=== PATIENT | female | born 1940 | race Caucasian/White ===

== ENCOUNTER → 2016-12-22 | Outpatient (CLI) | payer MEDICARE, OTHER ==
[2015-01-04 18:20] VITALS: BP 112/51
[~2016-12-22] MED LIST: ACET500T68 PO; ANTI10DR7 AU; ASCO-78 PO; ASPI81TA2 PO; BIOF1TAB7 PO; BIOT25005 PO; CALC-98 PO; CHOL10003 PO; CLIN30GE3 TP; CLOT15CR4 TP; DIPH25CA58 PO; DIVA125C PO; ECON15CR TP; FLUO10CA13 PO; FLUT16SP NS; FLUV50TA2 PO; FURO-68 PO; GLUC1CAP48 PO; HALO5AMP2 TOP; LORA0.5T TOP; LORA10TA68 PO; MAG355OR17 PO; MAGN2400 PO; MAGN454C TOP; MECL25TA3 PO; MENT5.8L4 PO; NEOM28OI TP; OLAN2.5T3 PO; ONDA4TAB7 PO; OXYM30SP67 NS; POTA20TA12 PO; PROM25VI5 IM; PROP15DR OU; RISP1SOL6 PO; RISP25DI IM; SODI30SP NS; TRIA15CR TP; TRIA15CR2 TP; VALE450C PO; [UNRECOGNIZED DRUG - OTHER] PO
[2016-12-22 08:33] LABS: CREATININE 0.8 mg/dL (0.6-1.0); GFR 69.9; POTASSIUM 4.1 mmol/L (3.5-5.1)
== END | disposition home or self-care (01) ==
LOC: SPEC 07:59
PROVIDERS: ATTEND Internal Medicine
DX: E63.9 Nutritional deficiency, unspecified (principal)
CPT/HCPCS: 36415; 80048

== ENCOUNTER → 2017-01-21 | Outpatient (CLI) | payer MEDICARE, OTHER ==
[2015-01-04 18:20] VITALS: BP 112/51
[~2017-01-21] MED LIST changes: +ASPI-630 PO; -ASPI81TA2 PO; -BIOT25005 PO; +BIOT25006 PO; -FLUT16SP NS; +FLUT16SP21 NS; -PROP15DR OU; +PROP15DR40 OU; -TRIA15CR TP; +TRIA15CR50 TP
[2017-01-21 14:17] LABS: BILIRUBIN,URINE NEG (NEG); CLARITY,URINE CLEAR; COLOR,URINE YELLOW; GLUCOSE,URINE NEG (NEG); NITRITE,URINE NEG (NEG); UROBILINOGEN,URINE 0.2 mg/dL (0.2 mg/dL)
[2017-01-21 14:18] LABS: BACTERIA,URINE FEW /HPF (0-FEW); WBC,URINE 0 /HPF (0-4)
== END | disposition home or self-care (01) ==
LOC: SPEC 13:35
PROVIDERS: ATTEND Internal Medicine
DX: N39.0 Urinary tract infection, site not specified (principal)
CPT/HCPCS: 81001

== ENCOUNTER → 2017-01-28 | Outpatient (CLI) | payer MEDICARE, OTHER ==
[2015-01-04 18:20] VITALS: BP 112/51
--- NOTE | 2017-01-28 10:37 | RAD ---
Examination: Ultrasound kidneys History: History of hematuria. Comparison: None available Findings: The right kidney measures 9.3 x 5.4 x 4.8. The left kidney measures 10.1 x 5.4 x 4.7 cm. There is a 1.3 cm cyst identified in the left kidney laterally. There is a 7 mm echogenicity identified in the left kidney likely an intrarenal collecting system calculus. The visualized aorta, IVC are patent. The urinary bladder is empty. Impression: 1. 7 mm intrarenal collecting system calculus identified in the left kidney. 2. 1.3 cm cyst identified in the left kidney.
== END | disposition home or self-care (01) ==
LOC: US 09:38
PROVIDERS: ATTEND Internal Medicine
DX: N20.0 Calculus of kidney (principal); N28.1 Cyst of kidney, acquired
CPT/HCPCS: 76770

== ENCOUNTER → 2017-03-14 | Outpatient (CLI) | payer MEDICARE, OTHER ==
[2015-01-04 18:20] VITALS: BP 112/51
== END | disposition home or self-care (01) ==
LOC: SPEC 10:23
PROVIDERS: ATTEND Urology
DX: N39.0 Urinary tract infection, site not specified (principal)
CPT/HCPCS: 87086

== ENCOUNTER → 2017-03-16 | Outpatient (CLI) | payer MEDICARE, OTHER ==
[2015-01-04 18:20] VITALS: BP 112/51
[~2017-03-16] MED LIST changes: +IOHEXOL 300 MG/ML 75 ML VIAL. IV ONE
[2017-03-16 08:37] LABS: CREATININE 0.9 mg/dL (0.6-1.0)
--- NOTE | 2017-03-16 16:21 | RAD ---
CT of the abdomen and pelvis with and without contrast, CT urogram, 03/16/2017: History: Left flank pain Multidetector imaging of the abdomen and pelvis was performed prior to and following an IV bolus injection of iodinated contrast material. The postcontrast scans were obtained through the kidneys in a nephrographic phase and through the entire urinary tract in an excretory phase. 3-D MIP reconstructions of the urinary tract were produced from the excretory phase data. The study is severely compromised by patient motion artifact. No urinary tract calculi are identified. There is a small cortical low-density lesion in the lower pole of the left kidney compatible with a cyst. There is renal sinus lipomatosis bilaterally. The renal collecting systems and ureters are not dilated. The urinary bladder shows no abnormality. A small low-density lesion in the central aspect of the liver is probably a cyst. The gallbladder is unremarkable. No pancreatic abnormality is seen. The spleen is of normal size. Aortoiliac calcific plaquing is present without evidence of aneurysm. The uterus is deviated to the right of midline. Multiple colonic diverticula are present, most numerous in the descending colon and sigmoid colon. No paracolonic inflammatory process is seen. No bowel dilatation is evident. There is a small hiatal hernia. There is no evidence of free fluid or free air in the abdomen or pelvis. There is diastases and thinning of the rectus abdominis musculature with a small umbilical hernia. The hernia contains only fat. Moderate multilevel degenerative changes are present in the spine. A small focal area of sclerosis in the L2 vertebral body is probably a bone island. IMPRESSION: 1. Severely compromised exam due to patient motion artifact. 2. Small left renal cyst. 3. No evidence of urinary tract calculi or obstruction. 4. Colonic diverticulosis. 5. Small umbilical hernia. PQRS Compliance Statement: One or more of the following individualized dose reduction techniques were utilized for this examination: 1. Automated exposure control 2. Adjustment of the mA and/or kV according to patient size 3. Use of iterative reconstruction technique
== END | disposition home or self-care (01) ==
LOC: CT 07:29
PROVIDERS: ATTEND Urology
DX: G30.9 Alzheimer's disease, unspecified (principal); K57.30 Diverticulosis of large intestine without perforation or abscess without bleeding; N28.1 Cyst of kidney, acquired; E88.2 Lipomatosis, not elsewhere classified; F02.80 Dementia in other diseases classified elsewhere, unspecified severity, without behavioral disturbance, psychotic disturbance, mood disturbance, and anxiety
CPT/HCPCS: 36415; 74178; 82565; Q9967

== ENCOUNTER → 2017-04-20 | Outpatient (CLI) | payer MEDICARE, OTHER ==
[2015-01-04 18:20] VITALS: BP 112/51
[~2017-04-20] MED LIST changes: -IOHEXOL 300 MG/ML 75 ML VIAL. IV ONE
[2017-04-20 12:49] LABS: CALCIUM 8.6 mg/dL (8.5-10.1); CREATININE 0.7 mg/dL (0.6-1.0); GFR 81.6; POTASSIUM 4.2 mmol/L (3.5-5.1)
== END | disposition home or self-care (01) ==
LOC: SPEC 11:39
PROVIDERS: ATTEND Internal Medicine
DX: I47.1 Supraventricular tachycardia (principal); E63.9 Nutritional deficiency, unspecified
CPT/HCPCS: 36415; 80048

== ENCOUNTER → 2017-06-30 | Outpatient (CLI) | payer MEDICARE, OTHER ==
[2015-01-04 18:20] VITALS: BP 112/51
== END | disposition home or self-care (01) ==
LOC: SPEC 11:46
PROVIDERS: ATTEND Internal Medicine
DX: E55.9 Vitamin D deficiency, unspecified (principal)
CPT/HCPCS: 36415; 82306

== ENCOUNTER → 2017-08-20 | Outpatient (CLI) | payer MEDICARE, OTHER ==
[2015-01-04 18:20] VITALS: BP 112/51
[2017-08-20 12:11] LABS: CALCIUM 9.2 mg/dL (8.5-10.1); CREATININE 0.9 mg/dL (0.6-1.0); GFR 60.9; POTASSIUM 4.1 mmol/L (3.5-5.1)
== END | disposition home or self-care (01) ==
LOC: SPEC 11:30
PROVIDERS: ATTEND Internal Medicine
DX: I47.1 Supraventricular tachycardia (principal); E63.9 Nutritional deficiency, unspecified; G30.9 Alzheimer's disease, unspecified; F02.80 Dementia in other diseases classified elsewhere, unspecified severity, without behavioral disturbance, psychotic disturbance, mood disturbance, and anxiety
CPT/HCPCS: 36415; 80048

== ENCOUNTER → 2017-10-27 | Outpatient (CLI) | payer MEDICARE, OTHER ==
[2015-01-04 18:20] VITALS: BP 112/51
== END | disposition home or self-care (01) ==
LOC: SPEC 14:35
PROVIDERS: ATTEND Internal Medicine
DX: E55.9 Vitamin D deficiency, unspecified (principal)
CPT/HCPCS: 36415; 82306

== ENCOUNTER 2018-02-07 13:17 | Inpatient (IN) | payer MEDICARE, OTHER ==
[~2018-02-07] VITALS: Ht 157.5 cm; Wt 69.7 kg
[~2018-02-07 13:17] MED LIST changes: +LORA0.5T PO; -LORA0.5T TOP
[2018-02-07] MEDS ORDERED: IV NORMAL SALINE 1,000ML 1,000 ML IV SCH (13:34)
--- NOTE | 2018-02-07 13:46 | PHYS DOC ---
Past History Past Medical History: Anxiety, Constipation, UTI, Other Past Surgical History: Other Alcohol Use: None Drug Use: None Adult General Chief Complaint Chief Complaint: MECHANICAL FALL HPI HPI 77-year-old female presents after fall in the longterm. The patient is not supposed to get out of a chair or bed without assistance and she decided to do so today she fell and landed on her face. She has abrasions to the bridge of her nose and around the left eye. She also has left wrist pain. The patient has dementia and is not oriented at baseline. According to the caregiver who accompanies her, she has been acting at baseline since the fall. She did not lose consciousness. When I ask her about pain, she doesn't really complain but does wince a bit when I palpate her face on the left. There is no obvious deformity. She had a bloody nose, that is controlled at this time. Review of Systems Review of Systems Constitutional: Denies fever or chills [] Eyes: Denies change in visual acuity, redness, or eye pain [] HENT: Denies nasal congestion or sore throat [] Respiratory: Denies cough or shortness of breath [] Cardiovascular: No additional information not addressed in HPI [] GI: Denies abdominal pain, nausea, vomiting, bloody stools or diarrhea [] : Denies dysuria or hematuria [] Musculoskeletal: Left wrist pain[] Integument: Denies rash or skin lesions [] Neurologic: Dementia at baseline [] Endocrine: Denies polyuria or polydipsia [] All other systems were reviewed and found to be within normal limits, except as documented in this note. Current Medications Current Medications Current Medications Medications (Trade) Dose Ordered Sig/Karen Start Time Stop Time Status Last Admin Dose Admin Sodium Chloride 1,000 ml @ 1,000 mls/hr Q1H 02/07/18 13:34 02/07/18 14:33 UNV Allergies Allergies Allergies Coded Allergies Type Severity Reaction Last Updated Verified Sulfa (Sulfonamide Antibiotics) Allergy Intermediate 10/12/14 Yes venom-honey bee Allergy Intermediate 10/12/14 Yes Physical Exam Physical Exam Constitutional: Well developed, well nourished, no acute distress, non-toxic appearance. [] HENT: Abrasions to the bridge of the nose and the left periorbital area dry blood within the naris. [] Eyes: PERRLA, EOMI, conjunctiva normal, no discharge. [] Neck: Normal range of motion, no tenderness, supple, no stridor. [] Cardiovascular:Heart rate regular rhythm, no murmur [] Lungs & Thorax: Bilateral breath sounds clear to auscultation [] Abdomen: Bowel sounds normal, soft, no tenderness, no masses, no pulsatile masses. [] Skin: Abrasions as noted above[] Back: No tenderness, no CVA tenderness. [] Extremities: Left wrist in splint and Varinder wrap. Not tender to palpation.. [] Neurologic: Alert, normal motor function, normal sensory function, no focal deficits noted. [] Psychologic: Affect normal, judgement normal, mood normal. [] Current Patient Data Vital Signs Vital Signs Date Time Temp Pulse Resp B/P (MAP) Pulse Ox O2 Delivery O2 Flow Rate FiO2 02/07/18 13:29 98.3 63 16 97 Room Air EKG EKG Normal sinus rhythm, rate 63, normal axis, no ST elevation or depression.[] Radiology/Procedures Radiology/Procedures CT HEAD WO CONTRAST History: Fell today, hit head Comparison: January 08, 2013. Technique: Noncontrast CT imaging was performed of the head. Exposure: One or more of the following individualized dose reduction techniques were utilized for this examination: 1. Automated exposure control 2. Adjustment of the mA and/or kV according to patient size 3. Use of iterative reconstruction technique. Findings: There is motion degradation. No acute extra-axial or parenchymal hemorrhage is identified. There is no significant intra-axial mass effect, midline shift, or extra-axial fluid collection. The pompa-white differentiation of the major vascular territories is preserved. There is bwve-bk-ihuaepno generalized supratentorial atrophy which has progressed since 2012 exam, ventricular size proportionate to sulcal spaces. There is some scattered relatively mild ill-defined low-density of the supratentorial parenchyma bilaterally. The mastoid air cells and the visualized paranasal sinuses are aerated. There is left frontal region scalp soft tissue hematoma, no underlying fracture. Impression: 1. No acute intracranial hemorrhage is identified. Exam is degraded by motion. There is generalized supratentorial atrophy which has progressed since 2013 exam. Ill-defined low-density of the supratentorial parenchyma is most commonly due to chronic microvascular ischemic disease in a patient this age. If there is suspicion for evolving or acute ischemia, follow-up CT or MRI could be beneficial. Electronically signed by: Chino Brown MD (02/07/2018 2:27 PM) [facility] DICTATED AND SIGNED BY: CHINO BROWN MD DATE: 02/07/18 1420 CC: VIN SALMERON DO; BRIANNE REAL MD ~ WRIST 2V LEFT History: left wrist pain, fell today Comparison: None. Findings: 3 views left wrist are submitted. Patient's watch is still present. There is degenerative change first carpometacarpal articulation. There is likely nondisplaced fracture of the ulnar styloid process. No definitive radius fracture is identified, segmentally obscured on various views. Impression: 1. There is suspected nondisplaced ulnar styloid process fracture. Electronically signed by: Chino Brown MD (02/07/2018 2:15 PM) [facility] DICTATED AND SIGNED BY: CHINO BROWN MD DATE: 02/07/18 7300 CC: VIN SALMERON DO; BRIANNE REAL MD ~ [] Course & Med Decision Making Course & Med Decision Making Pertinent Labs and Imaging studies reviewed. (See chart for details) The patient's has a nondisplaced distal ulnar styloid fracture. This is a closed fracture. She has an elevated troponin of 0.3. Head CT has no acute findings. I will admit the patient for trending of her troponins as well as observation due to her head trauma. Orthopedic consult is advised during admission. I discussed the case with the hospitalist, Dr. Olmos and he has agreed to admission for further management. Return to the patient's transport, her repeat labs came back and she was found to be profoundly hypokalemic and hypocalcemic. I ordered both of these replacements by IV. Greater than 35 minutes of critical care time was spent on this patient including not limited to lab interpretation, multiple IV medication worse, EKG interpretation, x-ray interpretation, coordination of care. [] Dragon Disclaimer Dragon Disclaimer This electronic medical record was generated, in whole or in part, using a voice recognition dictation system. Departure Departure: Referrals: BRIANNE REAL MD (PCP) VIN SALMERON DO February 07, 2018 13:46
--- NOTE | 2018-02-07 14:18 | RAD ---
WRIST 2V LEFT History: left wrist pain, fell today Comparison: None. Findings: 3 views left wrist are submitted. Patient's watch is still present. There is degenerative change first carpometacarpal articulation. There is likely nondisplaced fracture of the ulnar styloid process. No definitive radius fracture is identified, segmentally obscured on various views. Impression: 1. There is suspected nondisplaced ulnar styloid process fracture. Electronically signed by: Parth Armenta MD (02/07/2018 2:15 PM) [facility]
--- NOTE | 2018-02-07 14:31 | RAD ---
CT HEAD WO CONTRAST History: Fell today, hit head Comparison: January 08, 2013. Technique: Noncontrast CT imaging was performed of the head. Exposure: One or more of the following individualized dose reduction techniques were utilized for this examination: 1. Automated exposure control 2. Adjustment of the mA and/or kV according to patient size 3. Use of iterative reconstruction technique. Findings: There is motion degradation. No acute extra-axial or parenchymal hemorrhage is identified. There is no significant intra-axial mass effect, midline shift, or extra-axial fluid collection. The pompa-white differentiation of the major vascular territories is preserved. There is llnf-bz-aokfmawu generalized supratentorial atrophy which has progressed since 2013 exam, ventricular size proportionate to sulcal spaces. There is some scattered relatively mild ill-defined low-density of the supratentorial parenchyma bilaterally. The mastoid air cells and the visualized paranasal sinuses are aerated. There is left frontal region scalp soft tissue hematoma, no underlying fracture. Impression: 1. No acute intracranial hemorrhage is identified. Exam is degraded by motion. There is generalized supratentorial atrophy which has progressed since 2013 exam. Ill-defined low-density of the supratentorial parenchyma is most commonly due to chronic microvascular ischemic disease in a patient this age. If there is suspicion for evolving or acute ischemia, follow-up CT or MRI could be beneficial. Electronically signed by: Parth Armenta MD (02/07/2018 2:27 PM) [facility]
[2018-02-07] MEDS ORDERED: POTASSIUM CL 40MEQ IN 0.9%NACL 1,000 ML IV ONE (15:30)
[2018-02-07] MEDS ORDERED: CALCIUM GLUCONATE 1,000 MG/10 ML VIAL IV ONE (15:45)
--- NOTE | 2018-02-07 15:55 | EKG ---
[address] [address] Test Date: 2018-02-07 Test Time: 13:47:13 Pat Name: LEA CAROLINA Department: Room: Gender: F Manager Council: STEPHY : 1940 Requested By: VIN SALMERON Order Number: [id number] Reading MD: Measurements Intervals Victor Rate: 63 P: 46 NH: 188 QRS: -8 QRSD: 76 T: 45 QT: 416 QTc: 429 Interpretive Statements SINUS RHYTHM LEFTWARD AXIS QRS(T) CONTOUR ABNORMALITY CONSIDER ANTEROSEPTAL MYOCARDIAL DAMAGE POSSIBLY ABNORMAL ECG RI6.01 No previous ECG available for comparison
[2018-02-07 17:06] VITALS: BP 132/80
[2018-02-07] MEDS: POTASSIUM CL 40MEQ IN D5W 1,000 ML IV SCH (17:15)
[2018-02-07] MEDS ORDERED: CHOLECALCIFEROL (VITAMIN D3) 50,000 UNIT CAPSULE PO SCH (17:15)
[2018-02-07] MEDS ORDERED: CALCIUM CHLORIDE 1,000 MG/10 ML DISP.SYRIN IV ONE (17:30)
[2018-02-07] MEDS ORDERED: POTASSIUM CHLORIDE 20 MEQ TABLET.ER. PO ONE (17:30)
[2018-02-07] MEDS: CALCIUM CARBONATE 500 MG TABLET PO SCH (17:57)
[2018-02-07 19:20] VITALS: BP 119/82
[2018-02-07] MEDS: POTASSIUM CHLORIDE 20 MEQ TABLET.ER. PO SCH (20:32)
--- NOTE | 2018-02-07 21:17 | HP ---
ADMIT DATE: 02/07/2018 HISTORY OF PRESENT ILLNESS: The patient is a 77-year-old female patient, sister of [facility], who was sent from [facility] on account of after she fell. The patient is not supposed to get out of her chair or bed without assistance and she decided to do so today and she fell and landed on her face. She has abrasions in the bridge of her nose and around her left eye. She also has left wrist pain. The patient has dementia and is not oriented at baseline. According to the caregiver, who accompanies her, she has been acting at baseline since the fall. She did not lose any consciousness and when I asked her about pain she does not really complain, but does wince a bit when I palpated her face and on the left side there is no obvious deformity. There is a bloody nose that is controlled at the time she arrived. She was evaluated and was found to have possible nondisplaced fracture of the left styloid process for which a splint was applied. She was also found to have severe hypokalemia and hypocalcemia and was admitted to replenish her potassium and calcium as well as her hypernatremia and to start the process of physical and occupational therapy. The patient, herself is extremely demented and does not give any useful information. PAST MEDICAL HISTORY: Significant for dementia and anxiety. She also has Meniere's disease. PAST SURGICAL HISTORY: Unremarkable. ALLERGIES: She is allergic to SULFA . 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 She got her under graduate from [employer], some other place. She does not drink alcohol or use any recreational drugs. REVIEW OF SYSTEMS: Unobtainable. MEDICATIONS: She is currently on following medications: She is on Celebrex 200 mg twice a day, fluvoxamine maleate 75 mg once a day. She is on Senna Lax two tablets daily, Seroquel 12.5 mg twice a day, vitamin D 50,000 international units once a week. She is on Ativan 0.25 mg at bedtime, polyethylene glycol 17 grams daily p.r.n. for constipation and Ativan 0.5 mg 3 times a day. PHYSICAL EXAMINATION: GENERAL: On examining her today, she looked well and was clearly in no apparent respiratory distress, pale, but no jaundice, cyanosis, or thyromegaly. No jugular venous distension. No limb edema. VITAL SIGNS: Her heart rate on arrival was 63, blood pressure was 130/80, temperature was 98.3, respiratory rate was 16, and oxygen saturation was 97% on room air. HEAD, EYES, EARS, NOSE AND THROAT: Showed she is normocephalic, atraumatic. She does have bruises around the bridge of her nose and around her left eye. Otherwise, no other abnormality. NECK: Supple. HEART: Showed normal first and second heart sounds with no gallop, rub or murmur. CHEST: Clear to auscultation. No crepitation or rhonchi. ABDOMEN: Distended, soft, nontender. NEUROLOGIC: She is extremely demented, but does not have any lateralizing sign. All her cranial nerves intact. EXTREMITIES: She moves extremities without difficulty, although she is mostly bedbound, chair bound. LABORATORY DATA: On arrival showed serum sodium of 149, potassium 2.2, chloride 119, bicarbonate 18, anion gap of 12, BUN 11, creatinine 0.4, estimated GFR was 155 mL per minute. Her calcium was 5. Her white cell count was 5300, hemoglobin 10.5, hematocrit 31, MCV 93, and platelet count of 198,000. X-ray of her left wrist showed that there is a suspected nondisplaced ulnar styloid process fracture. The CT scan of the head showed that there is no intracranial hemorrhage identified, exam is degraded by motion. There is generalized supratentorial atrophy, which has progressed since 2013 exam, ill-defined low density of the supratentorial, is most commonly due to chronic microvascular ischemic disease in a patient of this age. If there is suspicion of evolving or acute ischemia followup CT scan or MRI could be identified, could be beneficial. IMPRESSION: In summary, this is a 77-year-old sister of manuel, who lives at [facility] and who fell landing on her face, sustaining some abrasion to bridge of her nose and around her left eye, who was found basically to have multiple electrolyte abnormality including hypernatremia, severe hypokalemia, potassium 2.2. She has also hypocalcemia. PLAN: My plan is to start her on IV fluid to replenish her potassium and also correct her high sodium. I will start her also on calcium carbonate and decide on further management accordingly. ELIAD MATA MD DR: Carlos JOB#: [id number] / [id number]
[2018-02-07 22:45] VITALS: BP 116/60
[2018-02-07] MEDS ORDERED: BENZ0.5T32 PO (23:35)
[2018-02-07] MEDS ORDERED: ACET325T21 PO (23:35)
[2018-02-07] MEDS ORDERED: SALI10002 MM (23:35)
[2018-02-07] MEDS ORDERED: MENT222L TP (23:36)
[2018-02-07] MEDS ORDERED: NYST15PO9 TP (23:36)
[2018-02-07] MEDS ORDERED: LORA0.5T96 PO (23:36)
[2018-02-07] MEDS ORDERED: QUET25TA5 PO (23:36)
[2018-02-07] MEDS ORDERED: POLY255P PO (23:36)
[2018-02-07] MEDS ORDERED: CHOL500050 PO (23:36)
[2018-02-07] MEDS ORDERED: SENN-87 PO (23:36)
[2018-02-07] MEDS ORDERED: CELE200C PO (23:36)
[2018-02-08] MEDS: POTASSIUM CL 40MEQ IN D5W 1,000 ML IV SCH ×2 (05:21→21:21)
[2018-02-08 05:50] VITALS: BP 110/76
[2018-02-08 07:09] LABS: BASO % 1 % (0-3); EOS # 0.3 x10^3/uL (0.0-0.7); EOS % 4 % (0-3); HEMATOCRIT 39.5 % (36.0-47.0); HEMOGLOBIN 13.3 g/dL (12.0-15.5); LYMPH # 1.5 x10^3/uL (1.0-4.8); LYMPH % 21 % (24-48); MEAN CORPUSCULAR HEMOGLOBIN 31 pg (25-35); MEAN CORPUSCULAR HGB CONC 34 g/dL (31-37); MEAN CORPUSCULAR VOLUME 92 fL (79-100); MONO # 0.6 x10^3/uL (0.0-1.1); MONO % 9 % (0-9); NEUT # 4.6 x10^3uL (1.8-7.7); NEUT % 66 % (31-73); PLATELET COUNT 245 x10^3/uL (140-400); RED CELL DISTRIBUTION WIDTH 13.8 % (11.5-14.5)
[2018-02-08 07:34] LABS: CALCIUM 8.7 mg/dL (8.5-10.1); CREATININE 0.7 mg/dL (0.6-1.0); GFR 81.4; POTASSIUM 4.4 mmol/L (3.5-5.1)
[2018-02-08] MEDS: CALCIUM CARBONATE 500 MG TABLET PO SCH ×3 (09:56→18:00)
[2018-02-08] MEDS: POTASSIUM CHLORIDE 20 MEQ TABLET.ER. PO SCH (09:56)
[2018-02-08 11:00] VITALS: BP 134/75
[2018-02-08 15:25] VITALS: BP 136/80
[2018-02-08 19:25] VITALS: BP 112/75
[2018-02-08 23:10] VITALS: BP 124/72
[2018-02-09 06:10] VITALS: BP 128/70
[2018-02-09 06:52] LABS: CALCIUM 10.1 mg/dL (8.5-10.1); CREATININE 0.8 mg/dL (0.6-1.0); GFR 69.7; POTASSIUM 4.2 mmol/L (3.5-5.1)
[2018-02-09] MEDS: CALCIUM CARBONATE 500 MG TABLET PO SCH (08:25)
[2018-02-09 11:00] VITALS: BP 118/69
--- NOTE | 2018-02-09 14:11 | PN ---
DATE: 02/08/2018 SUBJECTIVE: The patient is sitting propped up in bed, in no apparent respiratory distress. She was extremely confused, does not give any useful information. She continued to have pursed lip breathing. The nurse said that she had an episode of emesis this morning, but otherwise she has remained stable. PHYSICAL EXAMINATION: GENERAL: When I examined her, she looked well and was clearly in no apparent respiratory distress. VITAL SIGNS: Her heart rate was 81, blood pressure was 134/75, temperature was 99.3, respiratory rate was 18 and oxygen saturation was 97% on room air. HEAD, EYES, EARS, NOSE AND THROAT: Showed she is normocephalic, status post fall with bruises over the nasal bridge and around her left eye. NECK: Supple. HEART: Showed normal first and second heart sounds. No gallop, rub or murmur. CHEST: Clear to auscultation. No crepitation or rhonchi. ABDOMEN: Distended, soft, nontender. NEUROLOGIC: She is demented, but without any obvious lateralizing sign. All her cranial nerves intact. She moves upper extremities to much good extent than lower extremities. She is mostly bedbound, chair bound. Her intake over the last 24 hours was 1385, no output was recorded. LABORATORY DATA: This morning showed her serum sodium was 140, potassium 4.4, chloride 107, bicarbonate 22, anion gap of 11, BUN 11, creatinine was 0.7, estimated GFR was 81 mL per minute. Her glucose was 106. Her BUN is 11, creatinine 0.7, estimated GFR was 81 mL per minute. Her glucose was 106 and calcium was 8.7. Her white cell count was 7000, hemoglobin was 13.3, hematocrit 39, MCV 92, and platelet count 245,000. ASSESSMENT: Fall with resultant bruises and some abrasion on the bridge of the nose on the left periorbital area and dry blood within the naris, multiple metabolic abnormalities including hypernatremia that has resolved; hypokalemia, resolved; hypocalcemia, resolved. PLAN: My plan is to discontinue the oral potassium. Continue with IV fluid with potassium supplement and repeat her labs tomorrow and if they remain stable, you can discharge her back to [facility]. ELIDA MATA MD DR: VIOLA/dandre JOB#: [id number] / [id number]
--- NOTE | 2018-02-09 23:31 | DS ---
DATE OF DISCHARGE: 02/09/2018 HOSPITAL COURSE: The patient is a 77-year-old female patient, sister of a [employer] manuel who was brought from the [facility] assisted living on account of a falling. Apparently the patient to got out of her chair without assistance and she decided to do so on her own without asking for help, then she fell and landed on her face. She had abrasion to the bridge of her nose and around her left eye. She also had left wrist pain. She is demented and is not oriented even at baseline. She did not lose any consciousness and when I asked her about pain, she does not really, but does wince a bit when her face was palpated. Anyhow, she was extensively investigated in the Emergency Room, was found to be hypokalemic, hypernatremic and hypocalcemic. Her CT scan of the head was unremarkable. X-ray of her left breast showed a questionable nondisplaced ulnar styloid process fracture, for which she was put in a splint. She was admitted and was started on IV fluid in the form of D5 with 40 mEq of potassium chloride. She was started also on vitamin D and calcium carbonate and she did actually very well. She remained stable. Has had no falls. Her lab work showed dramatic improvement and that her sodium came down from 149 down to 141, potassium improved from 2.7-4.2 and her calcium has improved from 5-10.1 and a decision was made to transfer her back to [facility] with orders to increase the potassium supplement as well as calcium. She is already on vitamin D. PHYSICAL EXAMINATION: GENERAL: When I examined her today, she looked pale, but no jaundice or cyanosis. No lymphadenopathy, no thyromegaly. No jugular venous distention. No limb edema. VITAL SIGNS: Her heart rate was 79, blood pressure 118/69, temperature was 98.8, respiratory rate was 20, and oxygen saturation was 96% on room air. HEAD, EYES, EARS, NOSE AND THROAT: Showed she has some abrasion on the bridge of the nose and the left side of her face and around her left eye. NECK: Supple. HEART: Showed normal first and second heart sounds with no gallop, rub or murmur. CHEST: Clear to auscultation. No crepitation or rhonchi. ABDOMEN: Distended, soft, nontender. NEUROLOGIC: She is demented and disoriented to time, place and person; however, all cranial nerves are intact. She moves upper extremities to much extent than her lower extremities. She is mostly bedbound, chair bound. Her intake over the last 24 hours was 3000 and no output was recorded. LABORATORY DATA: Her lab work this morning showed a serum sodium of 41, potassium 4.2, chloride 108, bicarbonate 22, anion gap of 11, BUN 7, creatinine 0.8. Her estimated GFR was 70 mL per minute. Her glucose 124, calcium was 7.1, albumin was 3.4. White cell count was 7000, hemoglobin 13, hematocrit 39, MCV 92, and platelet count 245,000 with normal differential. DISCHARGE MEDICATIONS: She was discharged back to [facility] to continue calcium carbonate 500 mg 3 times a day before meals, potassium chloride 20 mEq twice a day, Tylenol 650 mg 3 times a day, aspirin 81 mg once a day, benztropine mesylate 0.5 mg at bedtime, Celexa 200 mg daily, cholecalciferol, vitamin D3 50,000 units every 2 weeks, fluvoxamine maleate 75 mg daily for anxiety, furosemide 40 mg daily, lorazepam 0.5 mg 3 times a day for anxiety and magnesium hydroxide, milk of magnesia 30 mL p.o. daily p.r.n. for constipation, nystatin 15 grams powder 1 application topically daily, ondansetron, Zofran 4 mg q. 8 hourly, polyethylene glycol 17 grams daily p.r.n. for constipation, Seroquel 12.5 mg twice a day, saliva substitution and Senna-S 2 tablets twice a day. FINAL DISCHARGE DIAGNOSES: 1. Fall with mild abrasion to the bridge of the nose and the side of the face. 2. Hypernatremia, resolved. 3. Hypokalemia, resolved. 4. Hypocalcemia, resolved. ELIDA MATA MD DR: VIOLA/dandre JOB#: [id number] / [id number]
== END 2018-02-09 14:45 | disposition home or self-care (01) | DRG 563 ==
LOC: ER 13:17 → 1 SOUTH 15:40
PROVIDERS: ADMIT Internal Medicine; ATTEND Internal Medicine
PROC: 2W3DX1Z Immobilization of Left Lower Arm using Splint (ICD-10-PCS; principal; 2018-02-07)
DX: S52.615A Nondisplaced fracture of left ulna styloid process, initial encounter for closed fracture (principal); E87.0 Hyperosmolality and hypernatremia; E83.51 Hypocalcemia; E87.6 Hypokalemia; F03.90 Unspecified dementia, unspecified severity, without behavioral disturbance, psychotic disturbance, mood disturbance, and anxiety; S00.31XA Abrasion of nose, initial encounter; R04.0 Epistaxis; F41.9 Anxiety disorder, unspecified; H81.09 Meniere's disease, unspecified ear; S00.212A Abrasion of left eyelid and periocular area, initial encounter; W18.30XA Fall on same level, unspecified, initial encounter; Y93.89 Activity, other specified; Y99.8 Other external cause status; Y92.129 Unspecified place in nursing home as the place of occurrence of the external cause; Z88.2 Allergy status to sulfonamides; Z91.030 Bee allergy status; Z79.899 Other long term (current) drug therapy; Z87.440 Personal history of urinary (tract) infections
CPT/HCPCS: 36415; 70450; 73100; 80048; 82040; 84484; 85025; 87641; 93005; 96360; 96361; 99291-25; J7030